=== PATIENT | female | born 1995 | race Caucasian/White ===

== ENCOUNTER 2016-11-11 18:55 | Observation (INO) | payer MEDICAID, OTHER ==
[~2016-11-11 18:55] MED LIST: PRETAB PO
[2016-11-11 19:45] VITALS: BP 129/70
[2016-11-11] MEDS ORDERED: cefTRIAXone 1,000 MG in LIDOCAINE 1% ED 2.1 ML IM ONE (20:10)
[2016-11-11] MEDS ORDERED: LIDOCAINE 1% 500 MG/50 ML VIAL INJ ONE ×2 (20:10→20:20)
[2016-11-11] MEDS ORDERED: cefTRIAXone 1,000 MG VIAL ONE (20:22)
[2016-11-11] MEDS ORDERED: LIDOCAINE 1% 50 ML ONE (20:32)
== END 2016-11-11 20:50 | disposition home or self-care (01) ==
LOC: MLD 18:55 → INTOOBSV 18:55 → MLD 19:18
PROVIDERS: ADMIT Obstetrics & Gynecology; ATTEND Obstetrics & Gynecology
DX: O26.893 Other specified pregnancy related conditions, third trimester (principal); R10.9 Unspecified abdominal pain; M54.9 Dorsalgia, unspecified; Z3A.38 38 weeks gestation of pregnancy
CPT/HCPCS: 76805; G0378; J0696; J2001; Q0092; 81000; 96372

== ENCOUNTER 2016-11-16 18:48 | Inpatient (IN) | payer OTHER ==
[~2016-11-16] VITALS: Ht 165.1 cm; Wt 99.8 kg
[2016-11-16] MEDS ORDERED: IBUPROFEN 800 MG TAB PO PRN (20:35)
[2016-11-16] MEDS ORDERED: LACTATED RINGERS 1,000 ML IV SCH (20:35)
[2016-11-16] MEDS ORDERED: METHYLERGONOVINE 0.2 MG/ML AMP IM SCH (20:35)
[2016-11-16] MEDS ORDERED: PROMETHAZINE 25 MG/ML VIAL IVP PRN (20:35)
[2016-11-16] MEDS ORDERED: NALBUPHINE 10 MG/ML AMP IVP PRN (20:35)
[2016-11-16] MEDS ORDERED: CARBOPROST 250 MCG/ML AMP IM PRN (20:35)
[2016-11-16] MEDS ORDERED: AMPICILLIN 2,000 MG VIAL ONE (21:13)
[2016-11-16 21:17] LABS: BASOPHILS # (AUTO) 0.1 K/uL (0.00-0.22); BASOPHILS % (AUTO) 0.6 % (0.0-2.0); EOSINOPHILS # (AUTO) 0.1 K/uL (0-0.4); HEMATOCRIT 33.4 % (36-48); HEMOGLOBIN 10.6 g/dL (12.0-16.0); LYMPHOCYTES % (AUTO) 22.2 % (20.5-51.1); MEAN CORPUSCULAR HEMOGLOBIN 25 pg (27-31); MEAN CORPUSCULAR HGB CONC 32 g/dL (33-37); MEAN CORPUSCULAR VOLUME 80 fL (80-94); MONOCYTES # (AUTO) 0.6 K/uL (0.8-1.0); MONOCYTES % (AUTO) 6.3 % (1.7-9.3); NEUTROPHILS # (AUTO) 6.3 K/uL (1.8-7.7); NEUTROPHILS % (AUTO) 69.9 % (42.2-75.2); PLATELET COUNT (AUTO) 168 K/uL (140-450); RED BLOOD CELL COUNT(AUTO) 4.19 MIL/uL (4.20-5.40); RED CELL DISTRIBUTION WIDTH 16.6 % (11.6-13.7); WHITE BLOOD COUNT (AUTO) 9.1 K/uL (4.8-10.8)
[2016-11-16 21:35] VITALS: BP 130/71
[2016-11-16 21:35] LABS: ANION GAP 15.1 (8-16); CALCIUM 8.6 mg/dL (8.5-10.1); CARBON DIOXIDE 22.8 mmol/L (21-32); CREATININE 0.7 mg/dL (0.6-1.3); POTASSIUM 3.9 mmol/L (3.5-5.1)
[2016-11-16 21:39] LABS: APPEARANCE,URINE HAZY (CLEAR); BILIRUBIN,URINE NEGATIVE (NEGATIVE); BLOOD, URINE 1+ (NEGATIVE); COLOR,URINE YELLOW (YELLOW); LEUKOCYTE ESTERASE ,URINE 2+ (NEGATIVE); NITRITE, URINE NEGATIVE (NEGATIVE); PROTEIN,URINE TRACE (NEGATIVE); UGLUCOSE NEGATIVE (NEGATIVE); UROBILINOGEN,URINE 0.2 EU/dL (0.2 - 1)
[2016-11-16 21:40] LABS: ALBUMIN 2.6 g/dL (3.4-5.0); TOTAL BILIRUBIN 0.2 mg/dL (0.0-1.0); TOTAL PROTEIN, SERUM 6.4 g/dL (6.4-8.2)
[2016-11-16 21:49] LABS: BACTERIA,URINE 4+ /HPF (None Seen); MUCUS,URINE 1+ /LPF (None Seen); WBC,URINE 20-40 /HPF (0-5); YEAST,URINE Few /HPF (None Seen)
[2016-11-16] MEDS ORDERED: AMPICILLIN 2,000 MG in NACL 0.9% 100 ML IV SCH (22:00)
[2016-11-17] MEDS ORDERED: OXYTOCIN 20 UNITS/LR PREMIX 1,000 ML IV SCH (00:30)
[2016-11-17] MEDS ORDERED: AMPICILLIN 1,000 MG VIAL ONE ×4 (02:21→14:02)
[2016-11-17] MEDS ORDERED: MISOPROSTOL 25 MCG TAB ONE (02:22)
[2016-11-17] MEDS: AMPICILLIN 1,000 MG VIAL IVP SCH ×4 (02:24→14:05)
[2016-11-17] MEDS ORDERED: OXYTOCIN 10 UNITS/ML VIAL IM ONE (04:00)
[2016-11-17] MEDS ORDERED: OXYTOCIN 20 UNITS/LR PREMIX 1,000 ML IV ONE (06:05)
[2016-11-17] MEDS ORDERED: BUPIVACAINE 0.125%/NS PREMIX 250 ML ONE (06:59)
--- NOTE | 2016-11-17 07:56 | NUR ---
PATIENT HAS BEEN SCREENED AND CATEGORIZED LOW NUTRITION RISK. PATIENT WILL BE SEEN WITHIN 7 DAYS OF ADMISSION. 11/23/[address]
[2016-11-17] MEDS ORDERED: NALBUPHINE HYDROCHLORIDE 10 MG/ML VIAL ONE (15:38)
[2016-11-17] MEDS ORDERED: OXYTOCIN 10 UNITS/ML VIAL ONE (15:53)
[2016-11-17] MEDS ORDERED: METHYLERGONOVINE 0.2 MG/ML AMP IM PRN (19:45)
[2016-11-17] MEDS ORDERED: BENZOCAINE/MENTHOL 20%-0.5% 60 GM CAN TP PRN (19:45)
[2016-11-17] MEDS ORDERED: TEMAZEPAM 15 MG CAP PO PRN (19:45)
[2016-11-17] MEDS ORDERED: OXYTOCIN 10 UNITS/ML VIAL IM PRN (19:45)
[2016-11-17] MEDS ORDERED: IBUPROFEN 800 MG TAB PO PRN (19:45)
[2016-11-17] MEDS ORDERED: oxyCODONE/APAP 5/325 MG 1 TAB TAB PO PRN (19:45)
[2016-11-17] MEDS ORDERED: WITCH HAZEL 40 PAD PACKAGE TP PRN (19:45)
[2016-11-17] MEDS ORDERED: DOCUSATE SOD/SENNA 50/8.6 MG 1 TAB PO SCH (21:00)
[2016-11-18 06:11] LABS: HEMATOCRIT 29.9 % (36-48); HEMOGLOBIN 9.5 g/dL (12.0-16.0)
[2016-11-18] MEDS: HYDROcodone/APAP 5/325 MG 1 TAB TAB PO PRN ×2 (06:25→16:36)
[2016-11-18] MEDS ORDERED: IBUP-2213 PO (08:23)
== END 2016-11-18 19:00 | disposition home or self-care (01) | DRG 560 ==
LOC: MLD 18:48 → OBSVTOIN 20:35 → MFCC 11-17 20:27
PROVIDERS: ADMIT Obstetrics & Gynecology; ATTEND Obstetrics & Gynecology
PROC: 10E0XZZ Delivery of Products of Conception, External Approach (ICD-10-PCS; principal; 2016-11-17)
PROC: 10907ZC Drainage of Amniotic Fluid, Therapeutic from Products of Conception, Via Natural or Artificial Opening (ICD-10-PCS; 2016-11-17)
PROC: 0W8NXZZ Division of Female Perineum, External Approach (ICD-10-PCS; 2016-11-17)
PROC: 00HU33Z Insertion of Infusion Device into Spinal Canal, Percutaneous Approach (ICD-10-PCS; 2016-11-17)
PROC: 3E0R3CZ (ICD-10-PCS; 2016-11-17)
PROC: 3E0234Z Introduction of Serum, Toxoid and Vaccine into Muscle, Percutaneous Approach (ICD-10-PCS; 2016-11-18)
DX: O99.824 Streptococcus B carrier state complicating childbirth (principal); Z23 Encounter for immunization; Z37.0 Single live birth; Z3A.39 39 weeks gestation of pregnancy
CPT/HCPCS: G0378 ×2; 36415; 51702; 59200; 59409; 80053; 81001; 85018; 85025; 86592; 86886; 86900; 86901; 87086; 90715; J0290; J2300; J2590; J3490; J7120